=== PATIENT | male | born 1970 | race American Indian/Alaskan Native ===

== ENCOUNTER 2016-11-18 15:18 | Emergency (ER) | payer MEDICAID ==
[~2016-11-18] VITALS: Ht 172.7 cm; Wt 73.4 kg
[2016-11-18 15:28] VITALS: BP 108/86
[2016-11-18] MEDS ORDERED: DIPHTHERIA-TETANUS ADULT 0.5ML IM-VACC ONE (15:30)
== END 2016-11-18 15:47 | disposition home or self-care (01) ==
LOC: ED 15:41
DX: S06.0X0A Concussion without loss of consciousness, initial encounter (principal); S01.01XA Laceration without foreign body of scalp, initial encounter; G56.00 Carpal tunnel syndrome, unspecified upper limb; S00.03XA Contusion of scalp, initial encounter; Y08.09XA Assault by strike by other specified type of sport equipment, initial encounter; Y93.89 Activity, other specified; Y92.89 Other specified places as the place of occurrence of the external cause; Y99.8 Other external cause status
CPT/HCPCS: 99283

== ENCOUNTER 2017-05-31 08:18 | Emergency (ER) | payer MEDICAID ==
[~2017-05-31] VITALS: Ht 172.7 cm; Wt 74.3 kg
[2017-05-31 08:21] VITALS: BP 131/88
[2017-05-31] MEDS ORDERED: CEPHALEXIN 500 MG CAPSULE ONE (09:50)
[2017-05-31] MEDS ORDERED: BACITRACIN ZINC OINT 500U/GM, 0.9 GM ONE (09:51)
[2017-05-31] MEDS ORDERED: CEPHALEXIN 500 MG CAPSULE PO SCH (10:00)
== END 2017-05-31 10:17 | disposition home or self-care (01) ==
LOC: ED 08:41
DX: S60.222A Contusion of left hand, initial encounter (principal); L03.114 Cellulitis of left upper limb; W50.0XXA Accidental hit or strike by another person, initial encounter; Y93.89 Activity, other specified; Y99.8 Other external cause status; Y92.89 Other specified places as the place of occurrence of the external cause
CPT/HCPCS: 99284

== ENCOUNTER 2019-07-16 21:30 | Emergency (ER) | payer MEDICAID ==
[~2019-07-16] VITALS: Ht 172.7 cm; Wt 78.5 kg
[2019-07-16 21:33] VITALS: BP 123/92
[2019-07-16] MEDS ORDERED: HYDROcodone/APAP 5/325 TABLET ONE (21:55)
--- NOTE | 2019-07-16 22:35 | NUR ---
Patient reports pain improved to 4/10 post medication Patient calling to provide ride home
--- NOTE | 2019-07-16 22:50 | NUR ---
Right wrist wrapped with antionette wrap then removeable wrist splint applied No change in cms post application
[2019-07-16] MEDS ORDERED: HYDROcodone/APAP 5/325 TABLET PO ONE (23:00)
== END 2019-07-16 22:52 | disposition home or self-care (01) ==
LOC: ED 22:14
DX: G89.29 Other chronic pain (principal); M25.531 Pain in right wrist; M79.641 Pain in right hand
CPT/HCPCS: 29260; 99283